=== PATIENT | female | born 1955 | race Asian ===

== ENCOUNTER 2016-10-12 22:19 | Emergency (ER) | payer MEDICAID ==
[2016-10-12 22:34] VITALS: BP 170/82; PULSE 84; RESP 16; TEMP 98.2; O2SAT 96
== END 2016-10-12 22:36 | disposition left against medical advice (07) ==
LOC: CED 22:19
DX: R51 Headache (principal); Z53.9 Procedure and treatment not carried out, unspecified reason

== ENCOUNTER 2016-10-13 07:36 | Emergency (ER) | payer MEDICAID ==
--- NOTE | 2016-10-13 08:10 | UCPHY ---
H & P Patient Type: New Chief Complaint Nursing Narrative: JEAN-BAPTISTE for past month Time Seen by Provider: 10/13/16 07:40 HPI/ROS: Chief Complaint: Headache HPI: 60-year-old woman presenting with 1 month of persistent headache. Patient states that it is about an 8/10 in intensity. Describes it as a dull diffuse pain. It is worse when she lays down flat. Also has some associated dizziness when she changes position. When she lays down or sits up she gets dizzy which lasts about 10 minutes. There is mild vertigo but mostly lightheadedness. No nausea or vomiting. No fevers or chills. No neck stiffness. Has not had any ringing in her ears or hearing changes. Has not had any vision changes. Has a history of hypertension and is compliant with her medications. Patient states she had a similar episode about 5 months ago was seen at [facility] and was told that she has an ear problem. She has not followed up with her primary care physician in [place] regarding this. ROS: 10 point Review of Systems is negative except as noted in the HPI. PMH: Hypertension, pre diabetes Medications: Losartan and a multivitamin Allergies: No known drug allergies Social History: No smoking, no alcohol, no recreational drug use Family History: non-contributory Physical Exam: Gen: Awake, Alert, No Distress HEENT: Nose: no rhinorrhea Eyes: PERRLA, EOMI Mouth: Moist mucosa Neck: Supple, no JVD Chest: nontender, lungs clear to auscultation Heart: S1, S2 normal, no murmur Abd: Soft, non-tender, no guarding Back: no CVA tenderness, no midline tenderness Ext: no edema, non-tender Skin: no rash Neuro: CN II-XII intact, Sensation grossly intact, Strength 5/5 in bilateral upper and lower extremities, normal finger-nose and heel-chang, no nystagmus, negative Romberg. - Personal History Current Tetanus/Diphtheria Vaccine: Yes Current Tetanus Diphtheria and Acellular Pertussis (TDAP): Yes Tetanus Vaccine Date: < 10 years - Medical/Surgical History Hx Asthma: No Hx Chronic Respiratory Disease: No Hx Diabetes: No Hx Cardiac Disease: Yes Hx Renal Disease: No Hx Cirrhosis: No Hx Alcoholism: No Hx HIV/AIDS: No Hx Splenectomy or Spleen Trauma: No Other PMH: htn - Family History Significant Family History: No pertinent family hx - Social History Smoking Status: Never smoked Constitutional: Initial Vital Signs Temperature (C) 36.7 C 10/13/16 07:46 Heart Rate 81 10/13/16 07:46 Respiratory Rate 18 10/13/16 07:46 Blood Pressure 125/79 H 10/13/16 07:46 O2 Sat (%) 94 10/13/16 07:46 O2 Delivery Mode Room Air Allergies/Adverse Reactions: No Known Allergies Allergy (Verified 10/13/16 07:44) Home Medications: Medication Instructions Recorded Losartan Potassium 10/12/16 Medical Decision Making - Diagnostics Imaging: CT scan of the head: Impression: 1. Prominent basal ganglia calcification.? Hypercalcemic (such as hyperparathyroidism) state versus normal. 2. Subtle asymmetric hypodensity right posterior frontal lobe. This may represent a sequelae of chronic microvascular ischemic change although an acute edema process cannot be excluded. 3. If symptoms persist , or if clinically indicated, consider MRI, without and with contrast. Interpreted by Dr. Kamlesh Alba. ED Course/Re-evaluation: 60-year-old woman presenting with 1 month of persistent headache and some associated occasional dizziness. She has not had any relief with over-the- counter medications. Will get a CT scan of the head to rule out evidence of a space-occupying lesion. Will also check basic chemistry and CBC and urinalysis and reassess. CT scan of the brain is noted. There is an area of subtle asymmetric hypodensity right posterior frontal lobe. This may represent a sequelae of chronic microvascular ischemic change although an acute edema process cannot be excluded. Given the patient's symptoms and the language barrier involved I think the patient would benefit from having an MRI done today. Patient will need to be transferred to [facility] for MRI. Case discussed with Dr Brown. Will accept in transfer. - Data Points Laboratory Results: Laboratory Results 10/13/16 08:20 10/13/16 08:20 10/13/16 10/13/16 10/13/16 09:05 08:20 08:20 WBC 4.74 10^3/uL 10^3/uL (3.80-9.50) RBC 4.49 10^6/uL 10^6/uL (4.18-5.33) Hgb 13.9 g/dL g/dL (12.6-16.3) Hct 41.1 % % (38.0-47.0) MCV 91.5 fL fL (81.5-99.8) MCH 31.0 pg pg (27.9-34.1) MCHC 33.8 g/dL g/dL (32.4-36.7) RDW 12.7 % % (11.5-15.2) Plt Count 253 10^3/uL 10^3/uL (150-400) MPV 9.3 fL fL (8.7-11.7) Neut % (Auto) 46.9 % % (39.3-74.2) Lymph % (Auto) 42.6 % % (15.0-45.0) [place] % (Auto) 6.5 % % (4.5-13.0) Eos % (Auto) 3.0 % % (0.6-7.6) Baso % (Auto) 0.6 % % (0.3-1.7) Nucleat RBC Rel Count 0.0 % % (0.0-0.2) Absolute Neuts (auto) 2.22 10^3/uL 10^3/uL (1.70-6.50) Absolute Lymphs (auto) 2.02 10^3/uL 10^3/uL (1.00-3.00) Absolute Monos (auto) 0.31 10^3/uL 10^3/uL (0.30-0.80) Absolute Eos (auto) 0.14 10^3/uL 10^3/uL (0.03-0.40) Absolute Basos (auto) 0.03 10^3/uL 10^3/uL (0.02-0.10) Absolute Nucleated RBC 0.00 10^3/uL 10^3/uL (0-0.01) Immature Gran % 0.4 % % (0.0-1.1) Immature Gran # 0.02 10^3/uL 10^3/uL (0.00-0.10) Sodium 144 mEq/L mEq/L (134-144) Potassium 4.0 mEq/L mEq/L (3.5-5.2) Chloride 107 mEq/L mEq/L (97-110) Carbon Dioxide 24 mEq/l mEq/l (22-31) Anion Gap 13 mEq/L mEq/L (8-16) BUN 15 mg/dL mg/dL (7-23) Creatinine 0.5 mg/dL L mg/dL (0.6-1.0) Estimated GFR > 60 Glucose 99 mg/dL mg/dL (70-100) Calcium 8.9 mg/dL mg/dL (8.5-10.4) Urine Color YELLOW Urine Appearance CLEAR Urine pH 6.5 (5.0-7.5) Ur Specific [place] 1.015 (1.002-1.030) Urine Protein NEGATIVE (NEGATIVE) Urine Ketones NEGATIVE (NEGATIVE) Urine Blood NEGATIVE (NEGATIVE) Urine Nitrate NEGATIVE (NEGATIVE) Urine Bilirubin NEGATIVE (NEGATIVE) Urine Urobilinogen 0.2 EU EU (0.2-1.0) Ur Leukocyte Esterase NEGATIVE (NEGATIVE) Urine Glucose NEGATIVE (NEGATIVE) Medications Given: Discontinued Medications Acetaminophen (Tylenol 160mg/5ml Oral Liquid) 1,000 mg PO EDNOW ONE Stop: 10/13/16 09:10 Last Admin: 10/13/16 09:14 Dose: 1,000 mg Departure - Departure Disposition: [facility] Clinical Impression: Dizziness Headache Qualifiers: Headache type: other headache syndrome Qualified Code(s): G44.89 - Other headache syndrome Condition: Fair Referrals: NONE *PRIMARY CARE P,. [Primary Care Provider] - As per Instructions - PQRS PQRS Measurement: NA
[2016-10-13 08:31] LABS: % IMMATURE GRANULYOCYTES 0.4 % (0.0-1.1); ABSOLUTE IMMATURE GRANULOCYTES 0.02 10^3/uL (0.00-0.10); ADD DIFF? NO; ADD MORPH? NO; ADD SCAN? NO; ATYPICAL LYMPHOCYTE FLAG 20 (0-99); FRAGMENT RBC FLAG 0 (0-99); HEMATOCRIT 41.1 % (38.0-47.0); HEMOGLOBIN 13.9 g/dL (12.6-16.3); LEFT SHIFT FLG 0 (0-99); LIPEMIA HEMOLYSIS FLAG 90 (0-99); MEAN CELL HEMOGLOBIN CONCENTR. 33.8 g/dL (32.4-36.7); MEAN CELL VOLUME 91.5 fL (81.5-99.8); MEAN PLATELET VOLUME 9.3 fL (8.7-11.7); PLATELET CLUMPS FLAG 0 (0-99); PLATELET COUNT 253 10^3/uL (150-400); RED BLOOD CELL COUNT 4.49 10^6/uL (4.18-5.33); RED CELL DISTRIBUTION WIDTH 12.7 % (11.5-15.2)
[2016-10-13 08:45] LABS: ANION GAP 13 mEq/L (8-16); CALCIUM 8.9 mg/dL (8.5-10.4); CARBON DIOXIDE 24 mEq/l (22-31); CHLORIDE 107 mEq/L (97-110); CREATININE 0.5 mg/dL (0.6-1.0); GLOMERULAR FILTRATION RATE > 60; GLUCOSE 99 mg/dL (70-100); SODIUM 144 mEq/L (134-144)
[2016-10-13] MEDS ORDERED: ACETAMINOPHEN 160 MG/5 ML UDCUP PO ONE (09:09)
[2016-10-13 09:11] LABS: COLOR YELLOW; LEUKOCYTE ESTERASE,URINE NEGATIVE (NEGATIVE); NITRITE,URINE NEGATIVE (NEGATIVE); PH,URINE 6.5 (5.0-7.5)
[2016-10-13] MEDS ORDERED: ACETAMINOPHEN 500 MG TAB ONE ×2 (09:11→09:15)
[2016-10-13 10:07] VITALS: O2SAT 96
[2016-10-13 10:53] VITALS: PULSE 78; TEMP 97.5
--- NOTE | 2016-10-13 11:12 | EDPHY ---
HPI/HX/ROS/PE/MDM Narrative: [facility] MRI report reviewed at 1551; discussed with Lio at this time, also discussed results with patient and daughter. Stable for discharge, cervical spine MRI findings unlikely to be related to her headache. Per Kevin discharge if nonsurgical MRI of the cervical spine. (Juan Salazar) CHIEF COMPLAINT: Headache HPI: The patient is a [place]ish-speaking 60 y/o female, with a history of hypertension, arriving from urgent care for a head MRI at the request of the [facility] physician. Her head CT today showed abnormal basal ganglia and hypodensity in right posterior frontal lobe. She reports a one-month history of a severe, persistent headache that is aggravated by position. She also reports associated dizziness and vertigo symptoms. Her dizziness is alleviated by lying still. She denies vision changes, hearing changes, neck pain, weakness, paresthesias, vomiting, or fever. Her daughter translated for me. REVIEW OF SYSTEMS: Aside from elements discussed in the HPI, a comprehensive 10-point review of systems was reviewed and is negative. PMH: Hypertension SOCIAL HISTORY: [place]ish-speaking. Daughter at bedside who translated for her. PHYSICAL EXAM: General:Patient is alert, in no acute distress. ENT:Eyes are normal to inspection. ENT inspection normal. Neck: Normal inspection. Full range of motion. Respiratory:No respiratory distress. Breath sounds normal bilaterally. Cardiovascular: Regular rate and rhythm. Strong peripheral pulses. Normal cap refill. Abdomen:The abdomen is nontender to palpation. There are no peritoneal signs. There are normal bowel sounds. Back: Normal to inspection. No tenderness to palpation. Skin: Normal color. No rash. Warm and dry. Extremities: Normal appearance. Full range of motion. Neuro: Oriented x3. Normal motor function. Normal sensory function. (Kamlesh Brown) ED Course: This is a 60 y/o female with a history of hypertension who presents with a one- month history of headache and dizziness. She denies any changes since presenting at [facility] this morning. Her neuro exam remains unremarkable. Plan to continue [facility] work up with brain MRI here. Study: MRI of the: Brain Indication: headache, dizziness, abnormal CT Results: MRI scan of the brain was obtained. The results of the study are 1. Quite prominent microvascular ischemic change in a 60-year-old. Is this patient chronically hypertensive? 2. Might this patient's headache be related to severe cervical stenosis related to an acute disk herniation. Recommend dedicated MRI of the cervical spine. The study was read by the radiologist, Dr. Alba. I viewed the images myself on the PACS system. 1500: Patient signed out to Dr. Salazar at shift change pending cervical spine MRI. If neck MRI is negative she will be discharged home. (Kamlesh Brown) MDM: This patient was transferred to the ED for MRI. This was read as significant for extensive white matter disease but no focal tumor, SAH, or CVA to explain headache. A severe cervical disc herniation was noted and MRI C-spine was recommended by Dr. Alba. I have signed the patient out to Dr. Salazar pending this study. I had a long discussion with the patient's daughter, who is comfortable with the plan to be discharged home if no emergent findings on MRI neck. I have referred her to [facility], neurology and have asked case management to assist in finding a PCP. (Kamlesh Brown) - Data Points Laboratory Results: Laboratory Results 10/13/16 08:20 10/13/16 08:20 Medications Given: Discontinued Medications Acetaminophen (Tylenol 160mg/5ml Oral Liquid) 1,000 mg PO EDNOW ONE Stop: 10/13/16 09:10 Last Admin: 10/13/16 09:14 Dose: 1,000 mg General Time Seen by Provider: 10/13/16 07:40 Initial Vital Signs: Initial Vital Signs Temperature (C) 36.7 C 10/13/16 07:46 Heart Rate 81 10/13/16 07:46 Respiratory Rate 18 10/13/16 07:46 Blood Pressure 125/79 H 10/13/16 07:46 O2 Sat (%) 94 10/13/16 07:46 O2 Delivery Mode Room Air Allergies/Adverse Reactions: No Known Allergies Allergy (Verified 10/13/16 07:44) Home Medications: Medication Instructions Recorded Losartan Potassium 10/12/16 Departure - Departure Disposition: Home, Routine, Self-Care Clinical Impression: Headache, Dizziness Condition: Good Instructions: Dizziness (ED), General Headache (ED) Additional Instructions: Follow up with your primary care provider or neurologist this week. Return to the ED for severe headache, vision changes, weakness or numbness in your extremities, or other worsening of condition. Take ibuprofen or Aleve in addition to Tylenol as directed for your headache. Referrals: NONE *PRIMARY CARE P,. [Primary Care Provider] - As per Instructions Gerson Marr MD [Medical Doctor] - As per Instructions Idalia Vaca DO [Doctor of Osteopathy] - As per Instructions Report Scribed for: Kamlesh Brown Report Scribed by: Cecilia Vital Date of Report: 10/13/16 Time of Report: 10:58 Physician Review and Approval Statement: Portions of this note were transcribed by an ED scribe. I personally performed the history, physical exam, and medical decision making; and confirm the accuracy of the information in the transcribed note.
[2016-10-13] MEDS ORDERED: GADOBUTROL 10 ML VIAL IVP ONE (11:49)
[2016-10-13 14:27] VITALS: BP 129/61; RESP 18
== END 2016-10-13 16:24 | disposition home or self-care (01) ==
LOC: CED 07:36
DX: R51 Headache (principal); R42 Dizziness and giddiness; I10 Essential (primary) hypertension
CPT/HCPCS: 70450-PO; 80048-PO; 81003-PO; 85025-PO; A9585; G0463-PO